=== PATIENT | male | born 1995 | race Caucasian/White ===

== ENCOUNTER 2017-12-12 11:27 | Emergency (ER) | payer OTHER ==
[2017-12-12 11:39] VITALS: TEMP 98.1
[2017-12-12] MEDS ORDERED: LORazepam 1 MG TAB PO ONE (13:13)
--- NOTE | 2017-12-12 13:22 | CPEKG ---
Heart Rate: 84 RR Interval: 714 P-R Interval: 116 QRSD Interval: 94 QT Interval: 356 QTC Interval: 421 P [place]: 37 QRS [place]: 74 T Wave [place]: 32 EKG Severity - NORMAL ECG - EKG Impression: SINUS RHYTHM Electronically Signed By: Xavier Briones 12-Dec-2017 14:06:05
--- NOTE | 2017-12-12 13:51 | EDPHY ---
H & P Smoking Status: Current every day smoker Time Seen by Provider: 12/12/17 11:54 HPI/ROS: CHIEF COMPLAINT: Anxiety HISTORY OF PRESENT ILLNESS: 22-year-old male presents to the emergency department by private vehicle feeling extremely anxious. He initially had symptoms around 2 o'clock this morning when you he was with a friend. He states that he has had these symptoms in the past but typically they resolve on their own. He did not sleep well last night. He presented to the emergency department today feeling better although still anxious. He describes pain in his chest. He denies difficulty breathing. He has had intermittent headaches associated with this denies URI symptoms. Denies any reported trauma. No history of substance abuse. He does smoke cigarettes. REVIEW OF SYSTEMS: Constitutional: No fever, no chills. Eyes: No double or blurry vision. ENT: No sore throat. Respiratory: No cough, no shortness of breath. Cardiac: Chest pain as above Gastrointestinal: No abdominal pain, vomiting or diarrhea. Genitourinary: No dysuria. Musculoskeletal: No neck or back pain. Skin: No rashes. Neurological: No headache. (Mariza Bentley) Past Medical/Surgical History: Anxiety, bipolar (Mariza Bentley) Social History: Single. Just moved to [place] one month ago from [place] (Mariza Bentley) Physical Exam: General Appearance: Alert, anxious. Eyes: Pupils equal and round. Extraocular motions are all intact. ENT: Mouth: Mucous membranes moist. Respiratory: No wheezing, rhonchi, or rales, lungs are clear to auscultation. Cardiovascular: Regular rate and rhythm. Gastrointestinal: Abdomen is soft and nontender, no masses, no rebound or guarding, bowel sounds normal. Neurological: Alert and oriented x 3, cranial nerves II through XII grossly intact Skin: Warm and dry, no rashes. Musculoskeletal: Nontender to palpate along the cervical, thoracic or lumbar spine. Neck is supple. Extremities: Full range of motion and no peripheral edema. Psychiatric: Patient is oriented X 3, there is no agitation. (aMriza Bentley) Constitutional: Initial Vital Signs Temperature (C) 36.7 C 12/12/17 11:37 Heart Rate 87 12/12/17 11:37 Respiratory Rate 18 12/12/17 11:37 Blood Pressure 117/79 12/12/17 11:37 O2 Sat (%) 97 12/12/17 11:37 O2 Delivery Mode Room Air Allergies/Adverse Reactions: No Known Allergies Allergy (Unverified 12/12/17 11:36) Home Medications: Medication Instructions Recorded LORazepam [Ativan] 1 mg PO Q6-8PRN PRN #10 tab 12/12/17 lamoTRIgine [LamICTAL 100 MG (*)] 100 mg PO 12/12/17 Medical Decision Making - Diagnostics EKG Interpretation: EKG: Complete interpretation has been separately recorded in the [facility] archive. Summary impression: Sinus rhythm, rate 84 (Xavier Briones) ED Course/Re-evaluation: 22-year-old male presents to the emergency department feeling anxious. He states his symptoms were rather severe earlier this morning and then improved. While he has been in the emergency department he is now developing recurring symptoms of anxiety. Patient was given 1 mg of Ativan p.o.. He had an EKG which revealed normal sinus rhythm. Patient denies substance abuse. The patient states that his mother and maternal grandmother had similar symptoms at his age. He is new to [place] and has a scheduled appointment with a primary care provider next week. (Mariza Bentley) Differential Diagnosis: Including but not limited to anxiety, depression, substance abuse, electrolyte abnormality, myocardial infarction (Mariza Bentley) Other Provider: I evaluated and participated in the management of the patient. I also evaluated the patient independently. My co-signature indicates that I have reviewed this chart and I agree with the findings and plan of care as documented. My personal H&P findings include: The patient presents to the ED with complaints of anxiety. The patient denies any suicidal or homicidal ideation. He denies any recent fever or infectious symptoms. The patient did have some mild complaints of palpitations and dyspnea. An EKG was performed which demonstrates a normal sinus rhythm. The patient will be treated with Ativan given outpatient resources. He does not meet criteria for 72 hr mental health hold. (Xavier Briones) - Data Points Medications Given: Discontinued Medications Lorazepam (Ativan) 1 mg PO EDNOW ONE Stop: 12/12/17 13:14 Last Admin: 12/12/17 13:17 Dose: 1 mg Departure - Departure Disposition: Home, Routine, Self-Care Clinical Impression: Anxiety Condition: Good Instructions: Anxiety (ED) Additional Instructions: Keep your scheduled follow-up appointment with Dr. Kelsie Rivera or follow up with on-call outpatient primary care provider. Return to the emergency department if you developed pain in her chest, difficulty breathing, or if you feel worse in any way. Lorazepam as used as a rescue medicine for symptoms of anxiety. Referrals: Kelsie Rivera MD [place] [place] - As per Instructions Tyra Pierson MD [Medical Doctor] - As per Instructions (Primary care provider composition siding worker) Prescriptions: LORazepam [Ativan] 1 mg PO Q6-8PRN PRN #10 tab PRN Reason: P.r.n. Anxiety
[2017-12-12 14:40] VITALS: BP 128/67; PULSE 89; RESP 16; O2SAT 96
== END 2017-12-12 14:45 | disposition home or self-care (01) ==
DX: F41.9 Anxiety disorder, unspecified (principal); F17.210 Nicotine dependence, cigarettes, uncomplicated